=== PATIENT | female | born 1990 | race Caucasian/White ===

== ENCOUNTER 2017-01-01 01:54 | Emergency (ER) | payer OTHER ==
[~2017-01-01 01:54] MED LIST: DOXY10TA PO; OXYC-360 PO; PEDI1CHW6; PROC25R RECTAL
[2017-01-01 02:33] LABS: BACTERIA, URINE RARE /hpf; BLOOD, URINE NEG (NEG); COMMENT (UR) CULT NOT INDICATED; CULTURE IF INDICATED CULT NOT INDICATED; GLUCOSE,URINE NEG (NEG); KETONE, URINE NEG (NEG); MUCUS URINE FEW /lpf (OCC); NITRITE,URINE NEG (NEG); PH, URINE 6.5 (5.0-8.5); SQUAMOUS EPITHELIAL CELL URINE 5 /hpf (0-5); URINE COLOR YELLOW (YELLW/STRAW)
--- NOTE | 2017-01-01 02:47 | PD ---
HPI Chief Complaint Abdominal pain and pelvic pressure Date Seen: Jan 01, 2017 Travel History International Travel<30 Days: No Contact w/Intl Traveler<30Days: No Known Affected Area: No History of Present Illness HPI This patient is 26-year-old white female at [address] Chilel for care presents planning of pelvic pressure this been going on for 2 or 3 days and has gotten worse, she denies bleeding or rupture the membranes or contractions, heart rate is reactive and no contractions seen Para: 1 : 2 History Obstetric History Obstetric History One vaginal delivery Social History Alcohol Use: No Tobacco Use: No Substance Abuse: No Allergies-Medications (Allergen,Severity, Reaction): Coded Allergies: No Known Allergies (Verified , 02/21/12) Home Meds Active Scripts Prochlorperazine (Compazine)25 Mg Supp25 Mg RECTAL Q12H PRN (NAUSEA) #12 SUPP Prov:Nahun Werner MD 08/03/16 Reported Medications Diclegis1 Tab 1 Tab Tab Po Tid 07/20/16 Oxycodone/Acetaminophen (Percocet)5 Mg/325 Mg Tab1-2 Tab PO Q4HPRN #30 FOR PAIN 02/23/12 Multivitamins/Folic Ac/Vit C (Flintstones Multivitamin)1 Tab Chew1 Tab .XX 02/21/12 Review of Systems General / Constitutional: No: Fever, Weight Gain, Chills, Other Eyes: No: Diploplia, Blurred Vision, Visual changes, Pain, Photophobia HENT: No: Headaches, Vertigo, Lightheadedness Cardiovascular: No: Irregular Rhythm, Chest Pain or Discomfort, Palpitations, Tachycardia, Syncope, Varicosities, Edema, Cyanosis Respiratory: No: Cough, Short of Breath, Other Gastrointestinal: No: Nausea, Vomiting, Diarrhea Genitourinary: Pelvic Pain, No: Decreased Urinary Output, Oliguria Musculoskeletal: No: Limited ROM, Weakness, Cramping, Edema, Pain Skin: No Rash, No Itching, No Dryness, No Lumps, No Change in Pigmentation, No Change in Nails, No Alopecia, No Lesions Neurologic: No: Weakness, Dizziness, Syncope, Focal Abnormalities, Coordination Problem, Headache, Slurred Speech, Seizures Psychiatric: No: Depression, Suicidal Ideations, Homicidal Ideation Endocrine: No: Heat Intolerance, Cold Intolerance, Polydipsia, Polyuria, Other Physical Exam Narrative GENERAL: Well-nourished, well-developed patient. SKIN: Warm and dry. HEAD: Normocephalic and atraumatic. EYES: No scleral icterus. No injection or drainage. ENT: No nasal drainage noted. Mucous membranes pink. Airway patent. NECK: Supple, trachea midline. No JVD. CARDIOVASCULAR: Regular rate and rhythm without murmurs, gallops, or rubs. RESPIRATORY: Breath sounds equal bilaterally. No accessory muscle use. BREASTS: Bilateral exam showed no masses , no retractions, no nipple discharge. ABDOMEN/GI: Abdomen soft, non-tender, bowel sounds present, no rebound, no guarding Gravid to [-34] weeks size Fundal Height: [34-] GENITOURINARY: External Genitalia: intact and normal in appearance BUS glands: [-] Cervix: [-] Dilatation: 2 Effacement: 50 Station: [-3] Presentation: [-vtx] Membranes: [intact Uterine Contractions: [none-] FHT's: Category: [-1] Baseline: [-144] Reactive: [yes-] Variability: [-mod] Decels: [none-] EXTREMITIES: No cyanosis or edema. BACK: Nontender without obvious deformity. No CVA tenderness. NEUROLOGICAL: Awake and alert. Motor and sensory grossly within normal limits. Five out of 5 muscle strength in all muscle groups. Normal speech. Data Data Orders Vital Signs (Adult) .ON ADMISSION (01/01/17 02:26) ^ Labor Status (01/01/17 02:26) Urinalysis - C+S If Indicated (01/01/17 02:26) Labs Laboratory Tests Test 01/01/17 02:00 Urine Color YELLOW Urine Turbidity HAZY Urine pH 6.5 Urine Specific [place] 1.012 Urine Protein NEG Urine Glucose (UA) NEG Urine Ketones NEG Urine Occult Blood NEG Urine Nitrite NEG Urine Bilirubin NEG Urine Urobilinogen LESS THAN 2.0 Urine Leukocyte Esterase LARGE Urine RBC 1 Urine WBC 7 Urine Squamous Epithelial 5 Cells Urine Bacteria RARE Urine Mucus FEW Microscopic Urinalysis Comment CULT NOT INDICATED MDM Interpretation(s) This patient is 26-year-old white female at 34 weeks presents combining of abdominal discomfort and pelvic pressure going on for several days worsening now, denies bleeding or ruptured membranes and having no regular contractions, heart rate tracing is reactive and no contractions seen, urinalysis is negative. Cervix is 2 / 50 and -3 which is the same as it was a day or so ago she was checked in the office by her doctor Dr. 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 Chilel Diagnosis Diagnosis: Primary Impression: Feeling pelvic pressure in in third trimester, antepartum Disposition: DISCHARGE HOME Condition: Stable Jere Cannon II, MD Jan 01, 2017 02:47
== END 2017-01-01 03:06 | disposition home or self-care (01) ==
LOC: HOBED 01:54
DX: O26.893 Other specified pregnancy related conditions, third trimester (principal); R10.2 Pelvic and perineal pain; R10.9 Unspecified abdominal pain; Z3A.34 34 weeks gestation of pregnancy
CPT/HCPCS: 81001; 99284

== ENCOUNTER 2017-01-06 06:28 | Emergency (ER) | payer OTHER ==
[2017-01-06] MEDS ORDERED: LACTATED RINGER'S 1000 ML INJ 1,000 ML IV SCH (07:33)
[2017-01-06] MEDS ORDERED: SODIUM CHLORIDE 0.9% FLUSH 5 ML FLUSH IVF PRN (07:45)
[2017-01-06] MEDS ORDERED: ONDANSETRON HCL 4 MG/2 ML VIAL IV ONE (07:45)
[2017-01-06] MEDS ORDERED: BETAMETHASONE SOD PHOS/ACETATE SUSP 30 MG/5 ML VIAL IM SCH (07:45)
--- NOTE | 2017-01-06 07:53 | PD ---
HPI Travel History International Travel<30 Days: No Contact w/Intl Traveler<30Days: No Known Affected Area: No History of Present Illness HPI This patient is a 26-year-old 2 para 0101 EDC is February 10, 2017 presently at 35 weeks even who presents with chief complaint of onset of nausea and vomiting. The patient states that the nausea vomiting began approximately one and a half days ago she's had a total of about 6-8 episodes of vomiting, began having crampy lower abdominal pain and low back pain about 3 AM No rupture of membranes no vaginal bleeding the baby is active no recent sexual intercourse No fever no chills no diarrhea no constipation no one else is sick in the family or child is not sick no headaches or visual changes no weakness or dizziness Pain is in the suprapubic area and in the low back area crampy in nature and intermittent states her uterus does get firm No UTI symptoms no urgency no frequency no dribbling no dysuria no hematuria urine however does appear to be concentrated Patient seen approximately 1 week ago for pressure in the lower abdomen at which time her cervix was 2 cm and 50% effaced care with Dr. Nahun Werner course is significant for history of hyperemesis in the first trimester she had an abnormal one-hour GTT the three- hour however was normal History Past Medical History Narrative Medical No known drug allergies denies any major medical problems Obstetric History Obstetric History First baby born February 21, 2014 female infant weight 5 lbs. 7 oz. born vaginally at 36 weeks gestation Past Surgical History Narrative Surgical Hernia repair at age 2 Family History Family History: Negative Social History Alcohol Use: No Tobacco Use: No Substance Abuse: No Allergies-Medications (Allergen,Severity, Reaction): Coded Allergies: No Known Allergies (Verified , 02/21/12) Home Meds Active Scripts Prochlorperazine (Compazine)25 Mg Supp25 Mg RECTAL Q12H PRN (NAUSEA) #12 SUPP Prov:Nahun Werner MD 08/03/16 Reported Medications Diclegis1 Tab 1 Tab Tab Po Tid 07/20/16 Oxycodone/Acetaminophen (Percocet)5 Mg/325 Mg Tab1-2 Tab PO Q4HPRN #30 FOR PAIN 02/23/12 Multivitamins/Folic Ac/Vit C (Flintstones Multivitamin)1 Tab Chew1 Tab .XX 02/21/12 Review of Systems General / Constitutional: No: Fever, Weight Gain, Weight Loss, Chills, Other Eyes: No: Diploplia, Blurred Vision, Visual changes, Pain, Photophobia, Other HENT: No: Headaches, Vertigo, Dental Difficulties, Lightheadedness, Other Cardiovascular: No: Irregular Rhythm, Chest Pain or Discomfort, Palpitations, Tachycardia, Syncope, Varicosities, Edema, Cyanosis, Other Respiratory: No: Cough, Short of Breath, Wheezing, Other Gastrointestinal: Nausea, Vomiting, Abdominal Pain Genitourinary: No: Urgency, Frequency, Dysuria, Nocturia, Hematuria, Decreased Urinary Output, Oliguria, Hesitancy, Dribbling, Incontinence, Pelvic Pain, Dyspareunia, Discharge, Menorrhagia, Vaginal Bleeding, Other Musculoskeletal: Other Skin: No Rash, No Itching, No Dryness, No Lumps, No Change in Pigmentation, No Change in Nails, No Alopecia, No Lesions, No Breast Lumps, No Breast Tenderness , No Breast Swelling, No Other Neurologic: No: Weakness, Dizziness, Syncope, Focal Abnormalities, Coordination Problem, Headache, Slurred Speech, Seizures, Other Endocrine: No: Heat Intolerance, Cold Intolerance, Polydipsia, Polyuria, Other Hematologic/Lymphatic: No Easy Bruising, No Lymph Node Enlargement, No Other Physical Exam Narrative GENERAL: Well-nourished, well-developed patient. Patient is alert oriented 3 and cooperative appears to be sick SKIN: Warm and dry. HEAD: Normocephalic and atraumatic. EYES: No scleral icterus. No injection or drainage. Conjunctiva are pink sclerae are clear ENT: No nasal drainage noted. Mucous membranes pink. Airway patent. Mucous membranes are dry NECK: Supple, trachea midline. No JVD. No lymph adenopathy CARDIOVASCULAR: Regular rate and rhythm without murmurs, gallops, or rubs. RESPIRATORY: Breath sounds equal bilaterally. No accessory muscle use. Lungs are clear no Rales or rhonchi no decreased breath sounds ABDOMEN/GI: Abdomen is gravid to 35 weeks gestation no right upper quadrant tenderness sore in the area of the diaphragm sore in the area of the left and right round ligaments no palpable contractions baby is moving uterus itself is nontender Gravid to [-] weeks size 35 weeks Fundal Height: [-] GENITOURINARY: External Genitalia: intact and normal in appearance BUS glands: [-] Cervix: [-] Posterior soft Dilatation: [-] 2 cm Effacement: [-] 50% effaced Station: [-] -2 station Presentation: [-] Vertex Membranes: [intact Uterine Contractions: [-] Uterine irritability and occasional contraction FHT's: Category: [-] 1 Baseline: [-] 150 Reactive: [-] Positive with accelerations up to 165 Variability: [-] Moderate Decels: [-] 0(episode on the monitor where the patient set up to vomit however no nubia decelerations) EXTREMITIES: No cyanosis or edema. 2+ reflexes BACK: Nontender without obvious deformity. No CVA tenderness. NEUROLOGICAL: Awake and alert. Motor and sensory grossly within normal limits. Five out of 5 muscle strength in all muscle groups. Normal speech. Data Data Vital Signs Reviewed: Yes (blood pressure 125/78, pulse is 94, O2 sat is 98%, temperature is 98.0) Orders Vital Signs (Adult) .ON ADMISSION (01/06/17 07:33) ^ Labor Status (01/06/17 07:33) Urinalysis - C+S If Indicated (01/06/17 07:33) ^ Hydration (01/06/17 07:33) Cbc No Diff, Includes Plts (01/06/17 07:33) Comprehensive Metabolic Panel (01/06/17 07:33) Uric Acid (01/06/17 07:33) Type And Screen (01/06/17 07:33) Lactated Ringer's 1000 Ml Inj (Lr 1000 M (01/06/17 07:33) Sodium Chloride 0.9% Flush (Ns Flush) (01/06/17 07:45) Betamethasone Inj (Celestone Soluspan In (01/06/17 07:45) Ondansetron Inj (Zofran Inj) (01/06/17 07:45) Ob/Psych Drug Screen, Urine (01/06/17 07:33) [facility] Medical Record Reviewed: No (no records available) Interpretation(s) 26-year-old 2 para 1 at 35 weeks gestation Cervical change that has been the same over the past week Nausea vomiting of Dehydration Abdominal soreness secondary to heaving Uterine irritability History of labor History of hyperemesis Narrative Course / MDM Urinalysis indicative of a urinary tract infection Patient feeling better after the Zofran and IV fluid hydration Category 1 tracing Irritability improved Will treat with Rocephin 1 g IV then discharge the patient home she is to follow -up with Dr. Werner in the a.m. for her second shot of betamethasone We will discharge home on Keflex 500 mg by mouth 3 times a day for 7 days Patient to return tomorrow January 17 at 9 AM for her second dose of betamethasone 12 mg IM Plan External monitoring IV fluid hydration lactated Ringer's thousand cc@1 25 cc an hour bolus with 500 cc CBC CMP uric acid urinalysis urine drug screen Zofran 4 mg IV By mouth fluids as tolerated Betamethasone 12 mg IM 2 doses every 24 hours(as patient has a history of labor, and is currently 2 cm dilated her risk of labor is elevated the fetus would benefit from betamethasone) Will reevaluate once labs are back Physician Communication Spoke with Dr. Werner he agrees with evaluation and management Will come in to see the patient Diagnosis Diagnosis: Primary Impression: Nausea and vomiting of , antepartum Additional Impressions: History of labor Dehydration 35 weeks gestation of History of hyperemesis gravidarum Urinary tract infection during in third trimester, antepartum Disposition: DISCHARGE HOME Condition: Stable Ange Dove MD Jan 06, 2017 07:53
[2017-01-06 08:00] LABS: HEMATOCRIT 35.7 % (35.0-46.0); MEAN CELL VOLUME 78.1 FL (80.0-100.0); MEAN CORPUSCULAR HEMOGLOBIN 26.9 PG (27.0-34.0); MEAN CORPUSCULAR HGB CONC 34.4 % (32.0-36.0); PLATELET COUNT 205 TH/MM3 (150-450); RED BLOOD COUNT 4.58 MIL/MM3 (4.00-5.30); RED CELL DISTRIBUTION WIDTH 13.9 % (11.6-17.2); REVIEW FLAG FINAL; WHITE BLOOD COUNT 9.9 TH/MM3 (4.0-11.0)
[2017-01-06 08:10] LABS: BACTERIA, URINE MOD /hpf; BLOOD, URINE TRACE (NEG); GLUCOSE,URINE NEG (NEG); KETONE, URINE 150 mg/dL (NEG); MUCUS URINE MOD /lpf (OCC); NITRITE,URINE NEG (NEG); SQUAMOUS EPITHELIAL CELL URINE 32 /hpf (0-5); TRANSITIONAL EPI CELLS, URINE <1 /hpf; URINE COLOR YELLOW (YELLW/STRAW)
[2017-01-06 08:17] LABS: COMMENT (UR) CULTURE INDICATED; CULTURE IF INDICATED CULTURE INDICATED
[2017-01-06 08:23] LABS: AMPHETAMINE, URINE NEG (NEG); BARBITURATES, URINE NEG (NEG); COCAINE, URINE NEG (NEG)
[2017-01-06 08:58] LABS: ALT (GPT) 15 U/L (10-53); ANION GAP 11 MEQ/L (5-15); AST (GOT) 13 U/L (15-37); BICARBONATE 21.2 MEQ/L (21.0-32.0); BLOOD UREA NITROGEN 9 MG/DL (7-18); CHLORIDE 105 MEQ/L (98-107); GLOMERULAR FILTRATION RATE 134 ML/MIN (>89); POTASSIUM 3.5 MEQ/L (3.5-5.1); SODIUM (NA) 137 MEQ/L (136-145); URIC ACID 3.6 MG/DL (2.6-6.0)
[2017-01-06 08:59] LABS: ALKALINE PHOSPHATASE 186 U/L (45-117); TOTAL BILIRUBIN ADULT 0.3 MG/DL (0.2-1.0)
[2017-01-06] MEDS ORDERED: SODIUM CHLOR 0.9% 1000 ML INJ 1,000 ML IV SCH (09:23)
[2017-01-06] MEDS ORDERED: cefTRIAXone INJ 1,000 MG in SODIUM CHLORIDE 0.9% INJ 100 ML IV ONE (10:30)
[2017-01-11 10:19] LABS: BATH SALTS (MDPV) UR NEG (NEG); ECSTASY (MDMA) UR NEG (NEG); HEROIN (6-ACETYLMORPHINE) UR NEG (NEG); K2 SPICE UR NEG (NEG); OBMETHADONE UR NEG (NEG); OXYCODONE (PERCODAN) NEG (NEG); PHENCYCLIDINE URINE NEG (NEG)
== END 2017-01-06 10:11 | disposition home or self-care (01) ==
LOC: HOBED 06:28
DX: O21.9 Vomiting of pregnancy, unspecified (principal); O23.43 Unspecified infection of urinary tract in pregnancy, third trimester; O09.213 Supervision of pregnancy with history of pre-term labor, third trimester; O26.893 Other specified pregnancy related conditions, third trimester; E86.0 Dehydration; R10.30 Lower abdominal pain, unspecified; M54.5 Low back pain; Z3A.35 35 weeks gestation of pregnancy
CPT/HCPCS: 59025; 80053; 80307; 81001; 84550; 85027; 86850; 86900; 86901; 87086; 96361; 96372; 96374; 96375; 99284; G0481; J0696; J0702; J2405; J7030; J7120

== ENCOUNTER 2017-01-07 09:24 | Emergency (ER) | payer OTHER ==
[~2017-01-07 09:24] MED LIST changes: -BETAMETHASONE SOD PHOS/ACETATE SUSP 30 MG/5 ML VIAL IM ONE; -OXYC1TAB63 PO; -PROM1SUP7 RECTAL
--- NOTE | 2017-01-07 10:25 | PD ---
HPI Travel History International Travel<30 Days: No Contact w/Intl Traveler<30Days: No Known Affected Area: No History of Present Illness HPI This patient is a 26-year-old 2 para 0101 EDC is February 10, 2017 presently at 35 weeks and 1 day she presents chief complaint of decreased movement. This patient was seen on January 06 at which time she was having nausea and vomiting she was treated with IV fluid hydration and Zofran urinalysis is also indicative of a UTI she was treated with a gram of Rocephin and sent home on Keflex 500 mg by mouth 3 times a day for 7 days. The patient was also given betamethasone and she received her second dose this morning due to a previous delivery at 36 weeks and the fact that her cervix is 2 cm dilated History Past Medical History Narrative Medical No known drug allergies no major medical problems Obstetric History Obstetric History First baby born February 21, 2014 female infant weight 5 lbs. 7 oz. vaginal at 36 weeks Past Surgical History Narrative Surgical Hernia repair at age 2 Family History Family History: Negative Social History Alcohol Use: No Tobacco Use: No Substance Abuse: No Allergies-Medications (Allergen,Severity, Reaction): Coded Allergies: No Known Allergies (Verified , 02/21/12) Home Meds Active Scripts Prochlorperazine (Compazine)25 Mg Supp25 Mg RECTAL Q12H PRN (NAUSEA) #12 SUPP Prov:Nahun Werner MD 08/03/16 Reported Medications Diclegis1 Tab 1 Tab Tab Po Tid 07/20/16 Oxycodone/Acetaminophen (Percocet)5 Mg/325 Mg Tab1-2 Tab PO Q4HPRN #30 FOR PAIN 02/23/12 Multivitamins/Folic Ac/Vit C (Flintstones Multivitamin)1 Tab Chew1 Tab .XX 02/21/12 Review of Systems Except as stated in HPI: all other systems reviewed are Neg Physical Exam Narrative GENERAL: Well-nourished, well-developed patient. Alert oriented 3 and cooperative no acute distress CARDIOVASCULAR: Regular rate and rhythm without murmurs, gallops, or rubs. RESPIRATORY: Breath sounds equal bilaterally. No accessory muscle use. ABDOMEN/GI: Gravid consistent with stated gestational age Gravid to [-] weeks size 35 weeks Fundal Height: [-] GENITOURINARY: Pelvic exam is deferred as patient has no complaints of contractions External Genitalia: intact and normal in appearance BUS glands: [-] Cervix: [-] Dilatation: [-] Effacement: [-] Station: [-] Presentation: [-] Membranes: [intact Uterine Contractions: [-]0 FHT's: Category: [-] 1 Baseline: [-]140 Reactive: [-] Yes Variability: [-] Moderate Decels: [-] Small area of questionable variable however will continue to monitor over the next 20-30 minutes EXTREMITIES: No cyanosis or edema. NEUROLOGICAL: Awake and alert. Motor and sensory grossly within normal limits. Five out of 5 muscle strength in all muscle groups. Normal speech. Data Data Vital Signs Reviewed: Yes Orders Vital Signs (Adult) .ON ADMISSION (01/07/17 09:45) ^ Labor Status (01/07/17 09:45) ^ Hydration (01/07/17 09:45) Us Ob Bpp Wo Nst W Repeat (01/07/17 09:45) Labs Gestational age by today's ultrasound is 32 weeks and 2 days the weight is 2004 g equaling 4 lbs. 6 oz. that is in the 16th percentile for 35 weeks and 1 day Amniotic fluid index is 7.1 The biophysical profile so far is 8 out of 8 Vertex presentation abdominal circumference is in the 8th percentile Anterior grade 2 placenta The summary is that the biometry is are consistent with states however the estimated weight is in the 16th percentile with abdominal circumference at the 8th percentile no anomalies are seen although somewhat limited due to the line gestational age amniotic fluid is lower limits of normal accelerations his oral hydration and rest reevaluate amniotic fluid index on January 11 Reevaluate growth and 2-3 weeks MDM Medical Record Reviewed: Yes (previous visit evaluated) Interpretation(s) 26-year-old at 35 weeks and 1 day History of delivery at 36 weeks Previous dehydration treated History of hyperemesis in first trimester Urinary tract infection presently being treated Narrative Course / MDM Biophysical profile demonstrates that the amniotic fluid index is 7 And the growth is in the 16th percentile Recommendations are repeating the ultrasound Patient has an appointment with Dr. Werner in the a.m. Will notify him of the ultrasound results Plan External monitoring Biophysical profile Physician Communication Spoke with Dr. Werner he agrees with evaluation and management Report of ultrasound given to him she has an appointment tomorrow he will follow up and make the appropriate scheduled appointments for repeat ultrasounds Diagnosis Diagnosis: Primary Impression: Decreased movement during in third trimester, antepartum Qualified Code: O36.8130 - Decreased movement during in third trimester, antepartum, not applicable or unspecified fetus Additional Impressions: UTI (urinary tract infection) in in third trimester 35 weeks gestation of Disposition: 01 DISCHARGE HOME Condition: Stable Ange Dove MD Jan 07, 2017 10:25
== END 2017-01-07 10:54 | disposition home or self-care (01) ==
LOC: HOBED 09:24
DX: O36.8130 Decreased fetal movements, third trimester, not applicable or unspecified (principal); O23.40 Unspecified infection of urinary tract in pregnancy, unspecified trimester; O23.43 Unspecified infection of urinary tract in pregnancy, third trimester; Z3A.35 35 weeks gestation of pregnancy
CPT/HCPCS: 59025; 76816; 76819

== ENCOUNTER → 2017-01-07 | Outpatient (CLI) | payer OTHER ==
[~2017-01-07] MED LIST changes: +BETAMETHASONE SOD PHOS/ACETATE SUSP 30 MG/5 ML VIAL IM ONE; +OXYC1TAB63 PO; +PROM1SUP7 RECTAL
== END ==
LOC: HOBG 09:09
PROVIDERS: ATTEND Obstetrics & Gynecology
DX: Z87.51 Personal history of pre-term labor (principal)
CPT/HCPCS: 96372; J0702

== ENCOUNTER 2017-01-12 22:08 | Emergency (ER) | payer OTHER ==
[2017-01-12] MEDS ORDERED: PANTOPRAZOLE SODIUM 40 MG VIAL IV PUSH ONE (22:45)
[2017-01-12] MEDS ORDERED: ONDANSETRON HCL 4 MG/2 ML VIAL IV ONE (22:45)
[2017-01-12] MEDS ORDERED: PROCHLORPERAZINE INJ 10 MG/2 ML VIAL IVS ONE (22:45)
[2017-01-12] MEDS ORDERED: PROM1SUP7 RECTAL (22:47)
--- NOTE | 2017-01-12 22:47 | PD ---
HPI Chief Complaint Nausea and vomiting, abdominal pain Date Seen: Jan 12, 2017 Travel History International Travel<30 Days: No Contact w/Intl Traveler<30Days: No Known Affected Area: No History of Present Illness HPI This patient is 26-year-old white female at 36 weeks who presents complaining of nausea and vomiting through the day. States that family members had a stomach flu in the today and she may have caught that, she denies bleeding or rupture the membranes. No contractions but she is having some abdominal pain. Patient had some Zofran ODT at home and took that but it did not work. She sees Dr. Chilel for care Para: 1 : 2 History Obstetric History Obstetric History One vaginal delivery She has had hyperemesis with this from early on Family History Family History: Negative Social History Alcohol Use: No Tobacco Use: No Substance Abuse: No Allergies-Medications (Allergen,Severity, Reaction): Coded Allergies: No Known Allergies (Verified , 02/21/12) Home Meds Active Scripts Prochlorperazine (Compazine)25 Mg Supp25 Mg RECTAL Q12H PRN (NAUSEA) #12 SUPP Prov:Nahun Werner MD 08/03/16 Reported Medications Diclegis1 Tab 1 Tab Tab Po Tid 07/20/16 Oxycodone/Acetaminophen (Percocet)5 Mg/325 Mg Tab1-2 Tab PO Q4HPRN #30 FOR PAIN 02/23/12 Multivitamins/Folic Ac/Vit C (Flintstones Multivitamin)1 Tab Chew1 Tab .XX 02/21/12 Review of Systems General / Constitutional: No: Fever, Weight Gain, Chills, Other Eyes: No: Diploplia, Blurred Vision, Visual changes, Pain, Photophobia HENT: No: Headaches, Vertigo, Lightheadedness Cardiovascular: No: Irregular Rhythm, Chest Pain or Discomfort, Palpitations, Tachycardia, Syncope, Varicosities, Edema, Cyanosis Respiratory: No: Cough, Short of Breath, Other Gastrointestinal: Nausea, Vomiting, No: Diarrhea Genitourinary: No: Decreased Urinary Output, Oliguria Musculoskeletal: No: Limited ROM, Weakness, Cramping, Edema, Pain Skin: No Rash, No Itching, No Dryness, No Lumps, No Change in Pigmentation, No Change in Nails, No Alopecia, No Lesions Neurologic: No: Weakness, Dizziness, Syncope, Focal Abnormalities, Coordination Problem, Headache, Slurred Speech, Seizures Psychiatric: No: Depression, Suicidal Ideations, Homicidal Ideation Endocrine: No: Heat Intolerance, Cold Intolerance, Polydipsia, Polyuria, Other Physical Exam Narrative GENERAL: lethargic, well-developed patient. SKIN: Warm and dry. HEAD: Normocephalic and atraumatic. EYES: No scleral icterus. No injection or drainage. ENT: No nasal drainage noted. Mucous membranes pink. Airway patent. NECK: Supple, trachea midline. No JVD. CARDIOVASCULAR: Regular rate and rhythm without murmurs, gallops, or rubs. RESPIRATORY: Breath sounds equal bilaterally. No accessory muscle use. BREASTS: Bilateral exam showed no masses , no retractions, no nipple discharge. ABDOMEN/GI: Abdomen soft, non-tender, bowel sounds present, no rebound, no guarding Gravid to [-36] weeks size Fundal Height: [-35 cm] GENITOURINARY: External Genitalia: intact and normal in appearance BUS glands: [-] Cervix: [-] Not checked today Membranes: [intact ] Uterine Contractions: [none-] FHT's: Category: [1-] Baseline: [144-] Reactive: [yes-] Variability: [mod-] Decels: [-none] EXTREMITIES: No cyanosis or edema. BACK: Nontender without obvious deformity. No CVA tenderness. NEUROLOGICAL: Awake and alert. Motor and sensory grossly within normal limits. Five out of 5 muscle strength in all muscle groups. Normal speech. Data Data Orders Vital Signs (Adult) .ON ADMISSION (01/12/17 22:33) ^ Labor Status (01/12/17 22:33) Urinalysis - C+S If Indicated (01/12/17 22:33) Cbc No Diff, Includes Plts (01/12/17 22:33) Comprehensive Metabolic Panel (01/12/17 22:33) Lactated Ringer's 1000 Ml Inj (Lr 1000 M (01/12/17 22:33) Ondansetron Inj (Zofran Inj) (01/12/17 22:45) Fentanyl Inj (Fentanyl Inj) (01/12/17 22:45) Prochlorperazine Inj (Compazine Inj) (01/12/17 22:45) Pantoprazole Inj (Protonix Inj) (01/12/17 22:45) [facility] Medical Record Reviewed: No Interpretation(s) This patient is 26-year-old white female at 36 weeks gestation [address] by [address] Chilel for care now presents with nausea and vomiting today. Denies diarrhea fever chills, she is some abdominal pain but no contractions leakage of fluid or bleeding. She states that some family of her had stomach flu recently and she may have contracted that. Plan Plan this patient is to receive IV fluid hydration as well as IV Zofran and Compazine and Protonix IV or some other antiemetic of similar nature as well as fentanyl for her pain . We will check urinalysis and CBC CMP and treat any abnormalities noted. Also plan the uterus and the patient home with a prescription for Phenergan suppositories just in case her Zofran doesn't work again is probably good idea to have the suppository. Once the patient improves will be able to discharge home. Diagnosis Diagnosis: Primary Impression: Nausea and vomiting of , antepartum Disposition: DISCHARGE HOME Condition: Stable Scripts Promethazine Supp (Phenergan Supp)25 Mg Supp25 Mg RECTAL Q6H PRN (NAUSEA OR VOMITING) #6 SUPP Ref 0 Prov:Jere Cannon II, MD 01/12/17 Jere Cannon II, MD Jan 12, 2017 22:47
[2017-01-12] MEDS: LACTATED RINGER'S 1000 ML INJ 1,000 ML IV SCH ×2 (23:12→23:59)
[2017-01-12 23:22] VITALS: RESP 18
[2017-01-12 23:57] VITALS: RESP 18
[2017-01-13 00:01] LABS: HEMATOCRIT 42.6 % (35.0-46.0); MEAN CELL VOLUME 78.2 FL (80.0-100.0); MEAN CORPUSCULAR HEMOGLOBIN 26.4 PG (27.0-34.0); MEAN CORPUSCULAR HGB CONC 33.8 % (32.0-36.0); PLATELET COUNT 268 TH/MM3 (150-450); RED BLOOD COUNT 5.45 MIL/MM3 (4.00-5.30); RED CELL DISTRIBUTION WIDTH 14.2 % (11.6-17.2); REVIEW FLAG FINAL; WHITE BLOOD COUNT 15.6 TH/MM3 (4.0-11.0)
[2017-01-13 00:09] LABS: ALT (GPT) 17 U/L (10-53); ANION GAP 12 MEQ/L (5-15); AST (GOT) 13 U/L (15-37); BICARBONATE 21.8 MEQ/L (21.0-32.0); BLOOD UREA NITROGEN 11 MG/DL (7-18); CHLORIDE 104 MEQ/L (98-107); GLOMERULAR FILTRATION RATE 105 ML/MIN (>89); POTASSIUM 3.6 MEQ/L (3.5-5.1); SODIUM (NA) 138 MEQ/L (136-145)
[2017-01-13 00:11] LABS: ALKALINE PHOSPHATASE 198 U/L (45-117); TOTAL BILIRUBIN ADULT 0.4 MG/DL (0.2-1.0)
[2017-01-13 00:45] VITALS: RESP 18
== END 2017-01-13 01:05 | disposition home or self-care (01) ==
LOC: HOBED 22:08
DX: O21.2 Late vomiting of pregnancy (principal); Z3A.36 36 weeks gestation of pregnancy
CPT/HCPCS: 36415; 80053; 85027; 96361; 96374; 96375; 99284; C9113; J0780; J2405; J7120

== ENCOUNTER 2017-01-14 10:59 | Inpatient (IN) | payer OTHER ==
[~2017-01-14] VITALS: Ht 157.5 cm; Wt 75.7 kg
[2017-01-14] VITALS (9 sets, daily range): BP systolic 95–125; BP diastolic 62–82; PULSE 70–88; RESP 17–18; TEMP 98
[~2017-01-14 10:59] MED LIST changes: +PROM1SUP7 RECTAL
[2017-01-14] MEDS ORDERED: LACTATED RINGER'S 1000 ML INJ 1,000 ML IV PRN (13:17)
[2017-01-14] MEDS ORDERED: LACTATED RINGER'S 1000 ML INJ 1,000 ML IV SCH (13:17)
[2017-01-14] MEDS ORDERED: LIDOCAINE HCL 1% 50 ML VIAL I-DERMAL PRN (13:30)
[2017-01-14] MEDS ORDERED: LIDOCAINE HCL 1% 50 ML VIAL INFIL PRN (13:30)
[2017-01-14] MEDS ORDERED: OXYTOCIN 30 UNITS-500ML PREMIX 500 ML IV ONE (13:30)
[2017-01-14] MEDS ORDERED: SODIUM CHLORID 0.9% 500 ML INJ 500 ML IV PRN (13:30)
[2017-01-14] MEDS ORDERED: CITRIC ACID-SODIUM CITRATE LIQ 30 ML UDC PO SCH (13:30)
[2017-01-14] MEDS ORDERED: MINERAL OIL 10 ML VIAL TOPICAL PRN (13:30)
[2017-01-14] MEDS ORDERED: OXYTOCIN 30 UNITS-500ML PREMIX 500 ML IV SCH (13:30)
[2017-01-14 13:34] LABS: AUTOMATED NEUTROPHIL # 6.4 TH/MM3 (1.8-7.7); BASOPHIL % 0.2 % (0.0-2.0); EOSINOPHIL % 0.5 % (0.0-4.0); HEMATOCRIT 36.4 % (35.0-46.0); HEMO FLAGS DIFF FINAL; LYMPH % 17.6 % (9.0-44.0); LYMPHOCYTE # 1.5 TH/MM3 (1.0-4.8); MEAN CELL VOLUME 77.8 FL (80.0-100.0); MEAN CORPUSCULAR HEMOGLOBIN 26.9 PG (27.0-34.0); MEAN CORPUSCULAR HGB CONC 34.6 % (32.0-36.0); MONO % 9.2 % (0.0-8.0); NEUT % 72.5 % (16.0-70.0); PLATELET COUNT 247 TH/MM3 (150-450); RED BLOOD COUNT 4.68 MIL/MM3 (4.00-5.30); RED CELL DISTRIBUTION WIDTH 14.4 % (11.6-17.2); WHITE BLOOD COUNT 8.8 TH/MM3 (4.0-11.0)
[2017-01-14 13:36] LABS: BACTERIA, URINE FEW /hpf; BLOOD, URINE TRACE (NEG); GLUCOSE,URINE NEG (NEG); KETONE, URINE 10 mg/dL (NEG); MUCUS URINE FEW /lpf (OCC); NITRITE,URINE NEG (NEG); SQUAMOUS EPITHELIAL CELL URINE 4 /hpf (0-5); URINE COLOR YELLOW (YELLW/STRAW)
[2017-01-14] MEDS ORDERED: SODIUM CHLOR 0.9% 1000 ML INJ 1,000 ML IV PRN (13:37)
[2017-01-14 13:38] LABS: COMMENT (UR) CULT NOT INDICATED; CULTURE IF INDICATED CULT NOT INDICATED
--- NOTE | 2017-01-14 15:07 | PD.OB.DELI ---
Delivery Date: Jan 14, 2017 Anesthesia: None Episiotomy: None Vaginal Delivery: Normal, Spontaneous Presentation: Occiput anterior Nuchal Cord: None Delayed cord clamping (45 sec): Yes : Female, Single One Minute : 8 Five Minute : 9 Weight: 5# 1 oz Infant Care: Suctioned, Spontaneous crying, Responded to stimulation Placenta: Spontaneous delivery, Intact, 3 vessel cord Laceration: No lacerations Nahun Werner MD Jan 14, 2017 15:07
[2017-01-14] MEDS ORDERED: WITCH HAZEL 50%/GLYCERIN 12.5% 40 PAD JAR TOPICAL PRN (15:15)
[2017-01-14] MEDS ORDERED: SODIUM CHLORIDE 0.9% FLUSH 5 ML FLUSH IV PRN (15:15)
[2017-01-14] MEDS ORDERED: ALUMINUM/MAGNESIUM/SIMETH 30 ML CUP PO PRN (15:15)
[2017-01-14] MEDS ORDERED: oxyCODONE/ACETAMINOPHEN 5 MG/325 MG TAB PO PRN ×2 (15:15)
[2017-01-14] MEDS ORDERED: ZOLPIDEM TARTRATE 5 MG TAB PO PRN (15:15)
[2017-01-14] MEDS ORDERED: BENZOCAINE 20% TOPICAL SPRAY 60 ML CAN TOPICAL PRN (15:15)
[2017-01-14] MEDS ORDERED: DOCUSATE SODIUM 50 MG/SENNA 8.6 MG TAB PO PRN (15:15)
[2017-01-14] MEDS ORDERED: ONDANSETRON ODT 4 MG TAB PO PRN (15:15)
[2017-01-14] MEDS ORDERED: ACETAMINOPHEN 325 MG TAB PO PRN (15:15)
[2017-01-14] MEDS: IBUPROFEN 600 MG TAB PO PRN ×2 (15:48→22:24)
[2017-01-14] MEDS ORDERED: DIPHTH/TETANUS/ACEL PERTUSSIS (BOOSTER) 0.5 ML VIAL/PFS IM ONE (16:00)
[2017-01-14] MEDS ORDERED: MEASLES, MUMPS, RUBELLA VACCINE 0.5 ML VIAL SQ ONE (16:00)
[2017-01-14] MEDS ORDERED: SODIUM CHLORIDE 0.9% FLUSH 5 ML FLUSH IV SCH (21:00)
--- NOTE | 2017-01-15 08:10 | HHI.HP ---
HPI Chief Complaint oligohydramnios Date Seen: Jan 14, 2017 Time Seen: 12:00 Travel History International Travel<30 Days: No Contact w/Intl Traveler<30Days: No Known Affected Area: No History of Present Illness HPI 36 weeks oligo for induction Para: 2 : 3 History Past Medical History Medical History: Denies Significant Hx Obstetric History Obstetric History x2 Past Surgical History Narrative Surgical none Surgical History: No Previous Surgery Family History Family History: Negative Social History Alcohol Use: No Tobacco Use: No Substance Abuse: No Allergies-Medications (Allergen,Severity, Reaction): Coded Allergies: No Known Allergies (Verified , 02/21/12) Home Meds Active Scripts Promethazine Supp (Phenergan Supp)25 Mg Supp25 Mg RECTAL Q6H PRN (NAUSEA OR VOMITING) #6 SUPP Ref 0 Prov:Jere Cannon II, MD 01/12/17 Prochlorperazine (Compazine)25 Mg Supp25 Mg RECTAL Q12H PRN (NAUSEA) #12 SUPP Prov:Nahun Werner MD 08/03/16 Reported Medications Doxylamine-Pyridoxine (Diclegis)1 Tab Tab Po Tid 07/20/16 Oxycodone/Acetaminophen (Percocet)5 Mg/325 Mg Tab1-2 Tab PO Q4HPRN #30 FOR PAIN 02/23/12 Multivitamins/Folic Ac/Vit C (Flintstones Multivitamin)1 Tab Chew1 Tab .XX 02/21/12 Review of Systems Except as stated in HPI: all other systems reviewed are Neg Physical Exam Narrative GENERAL: Well-nourished, well-developed patient. SKIN: Warm and dry. HEAD: Normocephalic and atraumatic. EYES: No scleral icterus. No injection or drainage. ENT: No nasal drainage noted. Mucous membranes pink. Airway patent. NECK: Supple, trachea midline. No JVD. CARDIOVASCULAR: Regular rate and rhythm without murmurs, gallops, or rubs. RESPIRATORY: Breath sounds equal bilaterally. No accessory muscle use. BREASTS: Bilateral exam showed no masses , no retractions, no nipple discharge. ABDOMEN/GI: Abdomen soft, non-tender, bowel sounds present, no rebound, no guarding Gravid to [-] weeks size Fundal Height: [-] GENITOURINARY: External Genitalia: intact and normal in appearance BUS glands: [-] Cervix: [-] Dilatation: [-] Effacement: [-] Station: [-] Presentation: [-] Membranes: [intact or ruptured] Uterine Contractions: [-] FHT's: Category: [-] Baseline: [-] Reactive: [-] Variability: [-] Decels: [-] EXTREMITIES: No cyanosis or edema. BACK: Nontender without obvious deformity. No CVA tenderness. NEUROLOGICAL: Awake and alert. Motor and sensory grossly within normal limits. Five out of 5 muscle strength in all muscle groups. Normal speech. Data Data Vital Signs Reviewed: Yes Orders Us Ob Bpp (01/14/17 ) Admit To Inpatient (01/14/17 ) Code Status (01/14/17 13:17) Vital Signs (Adult) .Per protocol (01/14/17 13:17) ^ Heart (01/14/17 13:17) ^ Amnioinfusion (01/14/17 13:17) Urinary Catheter Management .ONCE (01/14/17 13:17) Lactated Ringer's 1000 Ml Inj (Lr 1000 M (01/14/17 13:17) Lactated Ringer's 1000 Ml Inj (Lr 1000 M (01/14/17 13:17) Sodium Chlorid 0.9% 500 Ml Inj (Ns 500 M (01/14/17 13:30) Sodium Chlor 0.9% 1000 Ml Inj (Ns 1000 M (01/14/17 13:37) Lidocaine 1% Inj (50 Ml) (Xylocaine 1% I (01/14/17 13:30) Citric Acid-Sodium Citrate Liq (Bicitra (01/14/17 13:30) Fentanyl Inj (Fentanyl Inj) (01/14/17 13:30) Fentanyl Inj (Fentanyl Inj) (01/14/17 13:30) Complete Blood Count With Diff (01/14/17 13:17) Hold Clot (01/14/17 13:17) Abo/Rh Blood Type (01/14/17 13:17) Urinalysis - C+S If Indicated (01/14/17 13:17) Resp Oxygen Non Rebreathe Mask (01/14/17 ) ^ Epidural / Intrathecal Infus (01/14/17 13:17) Oxytocin 30 Units-500ml Premix (Pitocin (01/14/17 13:30) Lidocaine 1% Inj (50 Ml) (Xylocaine 1% I (01/14/17 13:30) Light Mineral Oil (Muri-Lube Oil) (01/14/17 13:30) Inpatient Certification (01/14/17 ) Specimen To Be Collected PRN (01/14/17 13:17) ^ Non Stress Test (01/14/17 13:21) Response To Medication .Post New Med Administration, Reaction (01/14/17 13:21) ^ Discontinue Medication (01/14/17 13:21) Oxytocin 30 Units-500ml Premix (Pitocin (01/14/17 13:30) Vital Signs (Adult) .QSHIFT (01/14/17 15:05) Activity Oob Ad Venecia (01/14/17 15:05) Ice / Cold Pack PRN (01/14/17 15:05) ^ Discontinue Iv (01/14/17 15:05) ^ Sitz Bath PRN (01/14/17 15:05) ^ Massage (01/14/17 15:05) ^ Rhogam (01/14/17 15:05) Urinary Catheter Management .PRN (01/14/17 15:05) Diet Regular Basic (01/14/17 Dinner) Sodium Chloride 0.9% Flush (Ns Flush) (01/14/17 21:00) Sodium Chloride 0.9% Flush (Ns Flush) (01/14/17 15:15) Acetaminophen (Tylenol) (01/14/17 15:15) Ibuprofen (Motrin) (01/14/17 15:15) Oxycodone-Acetamin 5-325 Mg (Percocet (01/14/17 15:15) Oxycodone-Acetamin 5-325 Mg (Percocet (01/14/17 15:15) Benzocaine 20% Top Spr (Americaine 20% T (01/14/17 15:15) Witch Dorene-Glycerin Pad (Tucks Pads) (01/14/17 15:15) Docusate Sodium-Senna (Rebekah-Colace) (01/14/17 15:15) Zolpidem (Ambien) (01/14/17 15:15) Raihzlh-Bozoz-Vapvuht Inj (M-M-R Ii Inj) (01/14/17 16:00) Rkps-Rds-Bezohv (Booster) Inj (Boostrix (01/14/17 16:00) Al-Mag Hy-Si 40-40-4 Mg/Ml Liq (Mag-Al P (01/14/17 15:15) Ondansetron Odt (Zofran Odt) (01/14/17 15:15) Labs Laboratory Tests Test 01/14/17 01/14/17 12:00 12:30 Urine Color YELLOW Urine Turbidity HAZY Urine pH 6.0 Urine Specific [place] 1.015 Urine Protein TRACE Urine Glucose (UA) NEG Urine Ketones 10 Urine Occult Blood TRACE Urine Nitrite NEG Urine Bilirubin NEG Urine Urobilinogen 2.0 Urine Leukocyte Esterase LARGE Urine RBC 2 Urine WBC 7 Urine Squamous Epithelial 4 Cells Urine Bacteria FEW Urine Mucus FEW Microscopic Urinalysis Comment CULT NOT INDICATED White Blood Count 8.8 Red Blood Count 4.68 Hemoglobin 12.6 Hematocrit 36.4 Mean Corpuscular Volume 77.8 Mean Corpuscular Hemoglobin 26.9 Mean Corpuscular Hemoglobin 34.6 Concent Red Cell Distribution Width 14.4 Platelet Count 247 Mean Platelet Volume 9.0 Neutrophils (%) (Auto) 72.5 Lymphocytes (%) (Auto) 17.6 Monocytes (%) (Auto) 9.2 Eosinophils (%) (Auto) 0.5 Basophils (%) (Auto) 0.2 Neutrophils # (Auto) 6.4 Lymphocytes # (Auto) 1.5 Monocytes # (Auto) 0.8 Eosinophils # (Auto) 0.0 Basophils # (Auto) 0.0 CBC Comment DIFF FINAL Differential Comment Blood Type A POSITIVE Band and Hold HOLD CLOT IN BB Assessment/Plan Problem List: (1) Oligohydramnios antepartum (2) 36 weeks gestation of Assessment and Plan for induction Nahun Werner MD Jan 15, 2017 08:10
--- NOTE | 2017-01-15 08:12 | HHI.OB ---
Subjective Post Day: 1 Remarks doing well Objective Vitals/I&O Vital Signs Date Time Temp Pulse Resp B/P Pulse Ox O2 Delivery O2 Flow Rate FiO2 01/14/17 20:00 70 17 118/62 01/14/17 20:00 98.0 01/14/17 16:00 77 113/73 01/14/17 15:45 79 95/66 01/14/17 15:45 18 01/14/17 15:31 72 105/74 01/14/17 15:20 18 01/14/17 15:15 86 125/82 01/14/17 15:06 88 113/67 01/14/17 15:05 18 01/14/17 13:58 86 123/76 Objective Remarks GENERAL: Well-nourished, well-developed patient. ABDOMEN/GI: Abdomen soft, non-tender. Fundus: Firm, non-tender at umbilicus. GENITOURINARY: Light to moderate bleeding. EXTREMITIES: No cyanosis or edema, non-tender, without signs of DVT. Medications and IVs Current Medications Medications (Trade) Dose Ordered Sig/Jeremiah Route Start Time Stop Time Status Last Admin Lactated Ringer's 1,000 ml @ 125 mls/hr Q8H IV 01/14/17 13:17 01/14/17 14:00 Lactated Ringer's 1,000 ml @ 3,000 mls/hr Q20M PRN IV 01/14/17 13:17 Sodium Chloride 500 ml @ 1,000 mls/hr ONCE PRN IV 01/14/17 13:30 01/16/17 13:29 (NS 1000 ml Inj) 1,000 ml @ 100 mls/hr Q10H PRN IV 01/14/17 13:37 Mineral Oil 10 ml 10 ml UNSCH PRN TOPICAL 01/14/17 13:30 (Pitocin 30 Units-NS 500 ml Premix) 500 ml @ 0 mls/hr TITRATE IV 01/14/17 13:30 01/14/17 14:00 (NS Flush) 2 ml BID IV 01/14/17 21:00 (NS Flush) 2 ml UNSCH PRN IV 01/14/17 15:15 (Tylenol) 650 mg Q4H PRN PO 01/14/17 15:15 (Motrin) 600 mg Q6H PRN PO 01/14/17 15:15 01/14/17 22:24 (Percocet 5-325 Mg) 1 tab Q4H PRN PO 01/14/17 15:15 (Percocet 5-325 Mg) 2 tab Q4H PRN PO 01/14/17 15:15 (Americaine 20% Top Spr) 1 spray Q4H PRN TOPICAL 01/14/17 15:15 01/14/17 22:23 (Tucks Pads) 1 applic QID PRN TOPICAL 01/14/17 15:15 01/14/17 22:23 (Rebekah-Colace) 2 tab Q12H PRN PO 01/14/17 15:15 01/14/17 22:24 (Ambien) 5 mg HS PRN PO 01/14/17 15:15 (Mag-Al Plus Susp Liq) 15 ml Q8H PRN PO 01/14/17 15:15 (Zofran Odt) 4 mg Q6H PRN PO 01/14/17 15:15 Assessment/Plan Problem List: (1) Oligohydramnios antepartum (2) 36 weeks gestation of Assessment and Plan Discharge Planning dc today Attending Attestation full admit Nahun Werner MD Jan 15, 2017 08:12
--- NOTE | 2017-01-15 08:13 | HHI.DCPOC ---
Discharge Care Plan Diagnosis: (1) Spontaneous vaginal delivery (2) 36 weeks gestation of Report Symptoms to Your Doctor -Temperate above 100.5 degrees -Redness, of incision or excessive or foul smelling drainage -Unusual pain or calf pain -Increased vaginal bleeding -Painful or difficulty urinating -Feelings of extreme sadness or anxiety after 2 weeks Goals to Promote Your Health * To prevent worsening of your condition and complications * To maintain your health at the optimal level Directions to Meet Your Goals Take your medications as prescribed Follow your dietary instruction Follow activity as directed Ensure plenty of rest for recovery Drink fluids for hydration Keep your appointments as scheduled Take your immunizations and boosters as scheduled If your symptoms worsen call your PCP, if no PCP go to Urgent Care Center or Emergency Room Smoking is Dangerous to Your Health. Avoid second hand smoke Call the 24-hour crisis hotline for domestic abuse at Nahun Werner MD Jan 15, 2017 08:13
[2017-01-15] MEDS ORDERED: OXYC1TAB63 PO (08:14)
--- NOTE | 2017-01-15 08:16 | HHI.DS ---
Admission Date Jan 14, 2017 at 11:57 Discharge Date: Jan 15, 2017 Admitting Diagnosis Diagnosis: (1) 36 weeks gestation of Diagnosis: Principal (2) Spontaneous vaginal delivery Diagnosis: Principal Delivery Date: Jan 14, 2017 Vaginal Delivery: Normal Infant: Female, Single Brief History 36 weeks oligo for induction Hospital Course after induction doing well Pt Condition on Discharge: Good Discharge Disposition: Discharge Home Discharge Instructions Diet Instructions: As Tolerated, No Restrictions Activities You Can Perform: Pelvic Rest Activities to Avoid: Driving for 24 hrs Follow up Referrals: [facility] - 2 Weeks @ [facility] with Nahun Werner MD New Medications: Oxycodone-Acetaminophen (Oxycodone-Acetaminophen) 5-325 mg Tab 1 TAB PO Q4H PRN PAIN SCALE 3 TO 5 #20 TAB Continued Medications: Multivitamins/Folic Ac/Vit C (Flintstones Multivitamin) 1 Tab Chew 1 TAB .XX Discontinued Medications: Doxylamine-Pyridoxine (Diclegis) 1 Tab Tab PO TID Nausea Oxycodone/Acetaminophen (Percocet) 5 Mg/325 Mg Tab 1 - 2 TAB PO Q4HPRN FOR PAIN #30 Prochlorperazine (Compazine) 25 Mg Supp 25 MG RECTAL Q12H PRN NAUSEA #12 SUPP Promethazine Supp (Phenergan Supp) 25 Mg Supp 25 MG RECTAL Q6H PRN NAUSEA OR VOMITING #6 Ref 0 SUPP Nahun Werner MD Jan 15, 2017 08:16
[2017-01-15] MEDS: IBUPROFEN 600 MG TAB PO PRN (12:06)
== END 2017-01-15 18:23 | disposition home or self-care (01) | DRG 775 ==
LOC: HPND 10:59 → H2EB 11:57 → H1EA 16:46
PROVIDERS: ADMIT Obstetrics & Gynecology; ATTEND Obstetrics & Gynecology
PROC: 10E0XZZ Delivery of Products of Conception, External Approach (ICD-10-PCS; principal; 2017-01-14)
PROC: 3E033VJ Introduction of Other Hormone into Peripheral Vein, Percutaneous Approach (ICD-10-PCS; 2017-01-14)
DX: O41.03X0 Oligohydramnios, third trimester, not applicable or unspecified (principal); Z37.0 Single live birth; Z3A.36 36 weeks gestation of pregnancy
CPT/HCPCS: 59025; 76818; 81001; 85025; 86900; 86901; 90715; J2590; J3010; J7120